=== PATIENT | male | born 1965 | race Caucasian/White ===

== ENCOUNTER 2020-04-18 22:15 | Emergency (ER) | payer OTHER, MEDICAID ==
[~2020-04-18] VITALS: Ht 172.7 cm; Wt 127.0 kg
[2020-04-18 22:35] VITALS: BP_SYST 138
--- NOTE | 2020-04-18 22:35 | NUR ---
ER Dr. WATTS at bedside examining patient.
--- NOTE | 2020-04-18 22:35 | NUR ---
Patient to ER bed 2 to gown for evaluation. Side rails up. Report given to DANISH.
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
[2020-04-18] MEDS ORDERED: IBUPROFEN 800 MG TABLET PO ONE (23:15)
--- NOTE | 2020-04-19 | NUR ---
VSS no s/s of acute distress Resting on gurney rails up
--- NOTE | 2020-04-19 01:05 | NUR ---
Pt states feeling a little better
--- NOTE | 2020-04-19 02:00 | NUR ---
Dr. Camacho bedside for pt update
[2020-04-19] MEDS ORDERED: DIPH-TET-PERTUS Vaccine 0.5 ML VIAL (ADACEL) I.M. ONE (02:15)
--- NOTE | 2020-04-19 02:20 | NUR ---
Pt taken to Radiology in stable condition
--- NOTE | 2020-04-19 03:30 | NUR ---
Dr. Camacho bedside for pt update
[2020-04-19 04:15] VITALS: BP_SYST 138
--- NOTE | 2020-04-19 04:15 | NUR ---
Patient given written and verbal discharge instructions and verbalizes understanding. ER MD discussed with patient the results and treatment provided. Patient in stable condition. ID arm band removed. IV catheter removed intact and dressing applied, no active bleeding. Rx of Naprosyn and Flexeril given. Patient educated on pain management and to follow up with PMD. Pain Scale 0/10 Opportunity for questions provided and answered. Medication side effect fact sheet provided.
== END 2020-04-19 04:15 | disposition home or self-care (01) ==
LOC: SED 22:15
DX: S60.221A Contusion of right hand, initial encounter (principal); S80.811A Abrasion, right lower leg, initial encounter; R07.89 Other chest pain; V49.9XXA Car occupant (driver) (passenger) injured in unspecified traffic accident, initial encounter; Y93.89 Activity, other specified; Y92.413 State road as the place of occurrence of the external cause; Y99.8 Other external cause status
CPT/HCPCS: 70450-TC; 71045; 71100; 76376; 76700-TC; 93005; 99285